=== PATIENT | male | born 1990 | race Caucasian/White ===

== ENCOUNTER 2024-07-28 14:43 | Outpatient (CLI) | payer OTHER, SELFPAY ==
--- NOTE | 2024-07-28 12:30 | DI.RAD_ITS ---
Exam(s) XR TOE LT GREAT EXAM: XR TOE LT GREAT CLINICAL HISTORY: Stepped on nail. R/o bony injury, base of toe S99.039Z. TECHNIQUE: 2D digital imaging was performed. Three views. COMPARISON: No exams were available for comparison FINDINGS: BONES: No acute fracture is present. No bony destructive lesion is seen. JOINTS: No dislocation present. SOFT TISSUE: Swelling at plantar aspect of the great toe. No foreign body. No abnormal gas collecti on. IMPRESSION: Soft tissue swelling. No evidence of fracture or retained foreign body. DATA REPOSITORY: RADIATION DOSE DELIVERED:
== END 2024-07-28 15:03 ==
PROVIDERS: Visit Provider Physician Assistant
DX: S99.922A Unspecified injury of left foot, initial encounter (principal); W45.0XXA Nail entering through skin, initial encounter
CPT/HCPCS: 73660